=== PATIENT | female | born 1995 | race African-American/Black ===

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

== ENCOUNTER 2017-05-04 19:16 | Emergency (ER) | payer MEDICAID, OTHER ==
[~2017-05-04 19:16] MED LIST changes: +IBUP1TAB7 PO; -IBUP800T23 PO
[2017-05-04 19:17] VITALS: BP 140/71; PULSE 87; RESP 16; TEMP 97.8; O2SAT 100
[2017-05-04 22:54] LABS: AUTOMATED NEUTROPHIL # 6.7 TH/MM3 (1.8-7.7); BASOPHIL % 0.3 % (0.0-2.0); EOSINOPHIL # 0.1 TH/MM3 (0-0.4); EOSINOPHIL % 0.7 % (0.0-4.0); HEMATOCRIT 39.5 % (35.0-46.0); HEMO FLAGS DIFF FINAL; LYMPH % 25.6 % (9.0-44.0); LYMPHOCYTE # 2.6 TH/MM3 (1.0-4.8); MEAN CELL VOLUME 90.9 FL (80.0-100.0); MEAN CORPUSCULAR HEMOGLOBIN 30.9 PG (27.0-34.0); MONO % 7.2 % (0.0-8.0); NEUT % 66.2 % (16.0-70.0); PLATELET COUNT 197 TH/MM3 (150-450); RED BLOOD COUNT 4.34 MIL/MM3 (4.00-5.30); RED CELL DISTRIBUTION WIDTH 15.2 % (11.6-17.2); RETIC % 4.6 % (0.4-3.0); REVIEW FLAG FINAL; WHITE BLOOD COUNT 10.1 TH/MM3 (4.0-11.0)
[2017-05-04] MEDS ORDERED: SODIUM CHLOR 0.9% 1000 ML INJ 1,000 ML IV ONE (23:00)
[2017-05-04] MEDS ORDERED: MORPHINE SULFATE 8 MG/ML INJ IV PUSH ONE (23:00)
[2017-05-04 23:18] VITALS: BP 147/70; PULSE 90; RESP 16; O2SAT 100
[2017-05-04 23:21] LABS: BICARBONATE 25.6 MEQ/L (21.0-32.0); POTASSIUM 3.8 MEQ/L (3.5-5.1)
--- NOTE | 2017-05-04 23:35 | PD ---
HPI Chief Complaint: Sickle Cell Time Seen by Provider: 22:47 Travel History International Travel<30 days: No Contact w/Intl Traveler<30days: No Traveled to known affect area: No History of Present Illness HPI 21yo F with PMH of sickle cell disease presents to the ED stating she is having a sickle cell crisis. Said her left leg has been hurting and it feels like her usual sickle cell crisis. Denies any fever, chest pain, sob, n/v, abdominal pain, fall, trauma, focal weakness or numbness. PFSH Past Medical History Asthma: Yes (as a child) Diminished Hearing: No Sickle Cell Disease: Yes ?: Not : 0 Para: 0 Miscarriage: 0 : 0 Social History Alcohol Use: No Tobacco Use: No Substance Use: No Allergies-Medications (Allergen,Severity, Reaction): Coded Allergies: diphenhydramine (Unverified Allergy, Mild, swelling, 01/18/17) swelling Reported Meds & Prescriptions Reported Meds & Active Scripts Active Ibuprofen 800 Mg Tab 800 Mg PO Q8H PRN Tramadol (Tramadol HCl) 50 Mg Tab 50 Mg PO Q6H PRN Review of Systems Except as stated in HPI: all other systems reviewed are Neg Physical Exam Narrative GENERAL: 21yo F in mild distress. SKIN: Focused skin assessment warm/dry. HEAD: Atraumatic. Normocephalic. EYES: Pupils equal and round. No scleral icterus. No injection or drainage. ENT: No nasal bleeding or discharge. Mucous membranes pink and moist. NECK: Trachea midline. No JVD. CARDIOVASCULAR: Regular rate and rhythm. No murmur appreciated. RESPIRATORY: No accessory muscle use. Clear to auscultation. Breath sounds equal bilaterally. GASTROINTESTINAL: Abdomen soft, non-tender, nondistended. MUSCULOSKELETAL: LLE: FROM in left hip, left knee. Sensation intact. Distal pulses intact. NEUROLOGICAL: Awake and alert. No obvious cranial nerve deficits. Motor grossly within normal limits. Normal speech. PSYCHIATRIC: Appropriate mood and affect; insight and judgment normal. Data Data Last Documented VS Vital Signs Date Time Temp Pulse Resp B/P (MAP) Pulse Ox O2 Delivery O2 Flow Rate FiO2 05/05/17 00:30 91 16 130/83 (99) 100 Room Air 05/04/17 19:17 97.8 Orders Orders Complete Blood Count With Diff (05/04/17 19:38) Basic Metabolic Panel (Bmp) (05/04/17 19:38) Retic Count (05/04/17 19:38) Morphine Inj (Morphine Inj) (05/04/17 23:00) Sodium Chlor 0.9% 1000 Ml Inj (Ns 1000 M (05/04/17 23:00) Morphine Inj (Morphine Inj) (05/05/17 00:15) Sodium Chlor 0.9% 1000 Ml Inj (Ns 1000 M (05/05/17 00:15) Labs Laboratory Tests Test 05/04/17 22:45 White Blood Count 10.1 TH/MM3 Red Blood Count 4.34 MIL/MM3 Hemoglobin 13.4 GM/DL Hematocrit 39.5 % Mean Corpuscular Volume 90.9 FL Mean Corpuscular Hemoglobin 30.9 PG Mean Corpuscular Hemoglobin Concent 34.0 % Red Cell Distribution Width 15.2 % Platelet Count 197 TH/MM3 Mean Platelet Volume 9.2 FL Neutrophils (%) (Auto) 66.2 % Lymphocytes (%) (Auto) 25.6 % Monocytes (%) (Auto) 7.2 % Eosinophils (%) (Auto) 0.7 % Basophils (%) (Auto) 0.3 % Neutrophils # (Auto) 6.7 TH/MM3 Lymphocytes # (Auto) 2.6 TH/MM3 Monocytes # (Auto) 0.7 TH/MM3 Eosinophils # (Auto) 0.1 TH/MM3 Basophils # (Auto) 0.0 TH/MM3 CBC Comment DIFF FINAL Differential Comment Reticulocyte Count 4.6 % Absolute Reticulocyte Count 198.5 MIL/L Blood Urea Nitrogen 3 MG/DL Creatinine 0.45 MG/DL Random Glucose 84 MG/DL Calcium Level 9.1 MG/DL Sodium Level 140 MEQ/L Potassium Level 3.8 MEQ/L Chloride Level 107 MEQ/L Carbon Dioxide Level 25.6 MEQ/L Anion Gap 7 MEQ/L Estimat Glomerular Filtration Rate 217 ML/MIN [facility] Medical Decision Making Medical Screen Exam Complete: Yes Emergency Medical Condition: Yes Differential Diagnosis Vasoocclusive crisis Narrative Course 21yo F with sickle cell disease here with c/o left leg pain that feels like her sickle cell crisis. Pt given 2 liters of NS IVF and morphine IV x2. Pt reevaluated at bedside with improvement. Pt is eating pizza at beside. Labs reviewed, no leukocytosis. Increased retic count. BMP unremarkable. Return precautions given. Diagnosis Primary Impression: Sickle cell crisis Patient Instructions: General Instructions Departure Forms: Tests/Procedures Additional Instructions: Please follow up with your wellness program manager. Return to the ED if symptoms worsen. Med/Other Pt SpecificInfo: No Change to Meds Disposition: 01 DISCHARGE HOME Condition: Stable Hayley Rios DO May 04, 2017 23:35
[2017-05-05] MEDS ORDERED: MORPHINE SULFATE 8 MG/ML INJ IV PUSH ONE (00:15)
[2017-05-05] MEDS ORDERED: SODIUM CHLOR 0.9% 1000 ML INJ 1,000 ML IV ONE (00:15)
[2017-05-05 00:30] VITALS: BP 130/83; PULSE 91; RESP 16; O2SAT 100
== END 2017-05-05 01:40 | disposition home or self-care (01) ==
LOC: NEPD 19:16
DX: D57.00 Hb-SS disease with crisis, unspecified (principal); M79.605 Pain in left leg; J45.909 Unspecified asthma, uncomplicated
CPT/HCPCS: 80048; 85025; 85044; 96361; 96374; 96376; 99284; J2270; J7030

== ENCOUNTER 2017-06-14 17:43 | Emergency (ER) | payer MEDICAID ==
[~2017-06-14] VITALS: Ht 165.1 cm; Wt 60.0 kg
[2017-06-14 18:45] VITALS: BP 122/84; PULSE 110; RESP 20; TEMP 98.3; O2SAT 99
[2017-06-14 20:13] LABS: AUTOMATED NEUTROPHIL # 9.4 TH/MM3 (1.8-7.7); BASOPHIL % 0.2 % (0.0-2.0); EOSINOPHIL % 0.3 % (0.0-4.0); HEMATOCRIT 35.6 % (35.0-46.0); HEMOGLOBIN 12.1 GM/DL (11.6-15.3); LYMPH % 18.1 % (9.0-44.0); LYMPHOCYTE # 2.3 TH/MM3 (1.0-4.8); MEAN CORPUSCULAR HEMOGLOBIN 30.7 PG (27.0-34.0); MEAN CORPUSCULAR HGB CONC 34.1 % (32.0-36.0); MEAN PLATELET VOLUME 9.1 FL (7.0-11.0); MONO % 6.5 % (0.0-8.0); MONOCYTE # 0.8 TH/MM3 (0-0.9); NEUT % 74.9 % (16.0-70.0); PLATELET COUNT 193 TH/MM3 (150-450); RED BLOOD COUNT 3.95 MIL/MM3 (4.00-5.30); RED CELL DISTRIBUTION WIDTH 15.8 % (11.6-17.2); RETIC # 218.3 MIL/L (20.0-150.0); RETIC % 5.5 % (0.4-3.0); WHITE BLOOD COUNT 12.6 TH/MM3 (4.0-11.0)
[2017-06-14] MEDS ORDERED: MORPHINE SULFATE 2 MG/ML INJ IV PUSH ONE ×2 (21:00→21:45)
[2017-06-14] MEDS ORDERED: SODIUM CHLOR 0.9% 1000 ML INJ 1,000 ML IV ONE ×2 (21:00→21:45)
--- NOTE | 2017-06-14 21:42 | PD ---
HPI Chief Complaint: Sickle Cell Time Seen by Provider: 20:38 Travel History International Travel<30 days: No Contact w/Intl Traveler<30days: No Traveled to known affect area: No History of Present Illness HPI 21yo F with PMH of sickle cell disease presents to the ED with c/o sickle cell crisis. Said she has pain in her bones. Feels like her sickle cell. Denies any fever, chest pain, sob, n/v, abdominal pain, focal weakness or numbness. PFSH Past Medical History Asthma: Yes (as a child) Diminished Hearing: No Sickle Cell Disease: Yes Tetanus Vaccination: < 5 Years Influenza Vaccination: No ?: Unknown : 0 Para: 0 Miscarriage: 0 : 0 Past Surgical History Surgical History: No Previous Surgery Social History Alcohol Use: No Tobacco Use: No Substance Use: No Allergies-Medications (Allergen,Severity, Reaction): Coded Allergies: diphenhydramine (Unverified Allergy, Mild, swelling, 01/18/17) swelling Reported Meds & Prescriptions Reported Meds & Active Scripts Active Ibuprofen 800 Mg Tab 800 Mg PO Q8H PRN Tramadol (Tramadol HCl) 50 Mg Tab 50 Mg PO Q6H PRN Review of Systems Except as stated in HPI: all other systems reviewed are Neg Physical Exam Narrative GENERAL: 21yo F in moderate distress. SKIN: Focused skin assessment warm/dry. HEAD: Atraumatic. Normocephalic. EYES: Pupils equal and round. No scleral icterus. No injection or drainage. CARDIOVASCULAR: Regular rate and rhythm. No murmur appreciated. RESPIRATORY: No accessory muscle use. Clear to auscultation. Breath sounds equal bilaterally. GASTROINTESTINAL: Abdomen soft, non-tender, nondistended. MUSCULOSKELETAL: No obvious deformities. No clubbing. No cyanosis. No edema. NEUROLOGICAL: Awake and alert. No obvious cranial nerve deficits. Motor grossly within normal limits. Normal speech. PSYCHIATRIC: Appropriate mood and affect; insight and judgment normal. Data Data Last Documented VS Vital Signs Date Time Temp Pulse Resp B/P (MAP) Pulse Ox O2 Delivery O2 Flow Rate FiO2 06/15/17 01:33 06/15/17 01:17 100 16 99 Room Air 06/14/17 18:45 98.3 Orders Orders Complete Blood Count With Diff (06/14/17 19:05) Retic Count (1/9/18 19:05) Iv Access Insert/Monitor (06/14/17 19:05) Sodium Chlor 0.9% 1000 Ml Inj (Ns 1000 M (06/14/17 21:00) Morphine Inj (Morphine Inj) (06/14/17 21:00) Sodium Chlor 0.9% 1000 Ml Inj (Ns 1000 M (06/14/17 21:45) Morphine Inj (Morphine Inj) (06/14/17 21:45) Ed Discharge Order (06/15/17 01:09) Labs Laboratory Tests Test 06/14/17 19:28 White Blood Count 12.6 TH/MM3 Red Blood Count 3.95 MIL/MM3 Hemoglobin 12.1 GM/DL Hematocrit 35.6 % Mean Corpuscular Volume 90.0 FL Mean Corpuscular Hemoglobin 30.7 PG Mean Corpuscular Hemoglobin Concent 34.1 % Red Cell Distribution Width 15.8 % Platelet Count 193 TH/MM3 Mean Platelet Volume 9.1 FL Neutrophils (%) (Auto) 74.9 % Lymphocytes (%) (Auto) 18.1 % Monocytes (%) (Auto) 6.5 % Eosinophils (%) (Auto) 0.3 % Basophils (%) (Auto) 0.2 % Neutrophils # (Auto) 9.4 TH/MM3 Lymphocytes # (Auto) 2.3 TH/MM3 Monocytes # (Auto) 0.8 TH/MM3 Eosinophils # (Auto) 0.0 TH/MM3 Basophils # (Auto) 0.0 TH/MM3 CBC Comment AUTO DIFF Differential Comment AUTO DIFF CONFIRMED Reticulocyte Count 5.5 % Absolute Reticulocyte Count 218.3 MIL/L MDM Medical Decision Making Medical Screen Exam Complete: Yes Emergency Medical Condition: Yes Differential Diagnosis Vasoocclusive crisis Narrative Course 21yo F with sickle cell disease here with c/o sickle cell crisis. Said it feels like her usual crisis. Denies any chest pain or sob. Labs reviewed, WBC 12.6. H/H normal at 12.1/35.6. Pt given morphine 6mg IV x2 and NS IVF x2. Pt reevaluated at bedside with improvement of pain. Return precautions given. Diagnosis Primary Impression: Sickle cell crisis Patient Instructions: General Instructions Departure Forms: Tests/Procedures Additional Instructions: Please follow up with your taper machine as outpatient. Return to the ED if symptoms worsen. Med/Other Pt SpecificInfo: No Change to Meds Disposition: 01 DISCHARGE HOME Condition: Stable Hayley Rios DO Jun 14, 2017 21:42
[2017-06-15 01:17] VITALS: BP 130/58; PULSE 100; RESP 16; O2SAT 99
== END 2017-06-15 01:35 | disposition home or self-care (01) ==
LOC: NEPD 17:43
DX: D57.00 Hb-SS disease with crisis, unspecified (principal)
CPT/HCPCS: 85025; 85044; 96361; 96374; 96376; 99284; J2270; J7030